=== PATIENT | female | born 1980 | race Caucasian/White ===

== ENCOUNTER → 2016-12-06 | Outpatient (CLI) | payer SELFPAY ==
--- NOTE | 2016-12-06 11:29 | KCIC ---
PROCEDURE Two-view chest HISTORY Tuberculosis screening COMPARISON None FINDINGS Two views of the chest are submitted. There is no lobar infiltrate, pleural fluid, pneumothorax. Heart size is considered within normal limits. Trachea is in the midline. IMPRESSION 1. There is no evidence of acute cardiopulmonary disease, no radiographic findings suggestive of active tuberculosis. Electronically signed by: Noah Allred MD (Dec 06, 2016 11:28:05)
== END | disposition home or self-care (01) ==
LOC: KCIC 10:27
PROVIDERS: ATTEND Family Medicine
DX: Z11.1 Encounter for screening for respiratory tuberculosis (principal)
CPT/HCPCS: 71020

== ENCOUNTER 2017-02-09 22:32 | Emergency (ER) | payer SELFPAY ==
[~2017-02-09] VITALS: Ht 152.4 cm; Wt 53.5 kg
[2017-02-10] MEDS ORDERED: HYDROmorphone 2 MG/ML VIAL IV ONE (00:15)
[2017-02-10 00:27] LABS: BASO # 0.1 x10^3/uL (0.0-0.2); BASO % 1 % (0-3); EOS % 3 % (0-3); HEMATOCRIT 29.3 % (36.0-47.0); HEMOGLOBIN 9.5 g/dL (12.0-15.5); LYMPH # 2.3 x10^3/uL (1.0-4.8); LYMPH % 26 % (24-48); MEAN CORPUSCULAR HEMOGLOBIN 26 pg (25-35); MEAN CORPUSCULAR HGB CONC 33 g/dL (31-37); MEAN CORPUSCULAR VOLUME 81 fL (79-100); MONO % 8 % (0-9); NEUT % 63 % (31-73); PLATELET COUNT 292 x10^3/uL (140-400); RED CELL DISTRIBUTION WIDTH 15.7 % (11.5-14.5); WHITE BLOOD COUNT 8.9 x10^3/uL (4.0-11.0)
[2017-02-10 00:30] LABS: BILIRUBIN,URINE NEGATIVE (NEG); GLUCOSE,URINE NEGATIVE (NEG); NITRITE,URINE NEGATIVE (NEG); PH,URINE 7.5; PROTEIN,URINE NEGATIVE (NEG-TRACE)
[2017-02-10 00:41] LABS: CALCIUM 8.3 mg/dL (8.5-10.1); CREATININE 0.7 mg/dL (0.6-1.0); GFR 95.2; POTASSIUM 3.6 mmol/L (3.5-5.1)
[2017-02-10 00:43] LABS: BACTERIA,URINE MODERATE /HPF (0-FEW); RBC,URINE 0 /HPF (0-2); SQUAMOUS EPITHELIAL CELL,UR MOD /LPF
[2017-02-10 00:47] LABS: ALBUMIN 3.3 g/dL (3.4-5.0); ALBUMIN/GLOBULIN RATIO 0.8 (1.0-1.7); TOTAL BILIRUBIN 0.3 mg/dL (0.2-1.0); TOTAL PROTEIN 7.7 g/dL (6.4-8.2)
--- NOTE | 2017-02-10 01:47 | RAD ---
PROCEDURE CT abdomen pelvis without contrast. HISTORY Right-sided flank pain since last week. No hematuria. TECHNIQUE Helical CT imaging of the abdomen pelvis is performed without IV or oral contrast. PQRS: One or more the following individualized dose reduction techniques were utilized for the study: 1. Automated exposure control. 2. Adjustment of the mA and/or kV according to patient size. 3. Use of iterative reconstruction technique. COMPARISON None. FINDINGS The lungs are clear. Cardiac size normal. The liver, gallbladder, spleen, pancreas, adrenal glands, abdominal aorta caliber are normal. No renal, ureteral, or bladder calculus. No perinephric stranding or hydronephrosis. Stomach unremarkable. Tiny fat containing umbilical hernia. No dilated small bowel. There is no colon wall thickening. Scattered stool in the colon. No secondary signs of appendicitis. No abdominal adenopathy or free fluid. Uterus prominent, not well evaluated with CT. Mild pelvic free fluid may be physiologic. The urinary bladder is normal. No acute bone abnormality. IMPRESSION 1. No renal or ureteral calculus. No obstructive uropathy. 2. Mild pelvic free fluid, probably physiologic. Electronically signed by: Atul Paul MD (February 10, 2017 01:45:51)
[2017-02-10 02:00] VITALS: BP 132/69
[2017-02-10] MEDS ORDERED: TRAM-29 PO (02:33)
[2017-02-10] MEDS ORDERED: CEPH-264 PO (02:33)
--- NOTE | 2017-02-10 02:33 | PHYS DOC ---
Past Medical History Past Medical History: No Pertinent History Past Surgical History: No Surgical History Alcohol Use: None Drug Use: None Adult General Chief Complaint Chief Complaint: FLANK PAIN HPI HPI Patient is a 36 year old female who presents here today complaining of flank pain 2 weeks. Patient reports the pain is colicky in nature. Patient denies any history of hypertension diabetes liver longer kidney problems. Patient has had no abdominal or chest surgeries. Patient does not smoke drink or do any drugs. Patient is allergic to any medications. Patient's last menstrual period was January 22, 2017. Patient has any fevers shakes chills nausea vomiting diarrhea cough vaginal discharge melena or blood per rectum. Patient reports her last by mouth intake was prior to coming. Patient denies having a bowel movement today. Patient's physical exam the ER was significant for tenderness to palpation to her flank region. Patient has no evidence of her doctor peritonitis. Patient's abdomen was soft nontender no rebound or guarding. Patient did not exhibit any signs or symptoms that'll be consistent with an acute surgical abdomen. Patient's ER workup is unremarkable except for positive UTI. Patient has CT scan of the abdomen and pelvis which did not reveal any pathology. There was no kidney stones diverticulitis abscess or masses that would explain the patient's symptoms. A/P #1 abdominal pain likely secondary to urinary tract infection. Patient was started on antibiotics and will be discharged home in stable condition. Patient was given adequate analgesia in the ER she feels much improved. Patient was given Dilaudid Toradol and Zofran IV fluids with significant resolution in her discomfort. Patient was given a dose of IV Rocephin the ER to initiate her therapy. Patient was sent home with by mouth Keflex. Review of Systems Review of Systems Constitutional: Denies fever or chills [] Eyes: Denies change in visual acuity, redness, or eye pain [] All other review systems are negative except as documented in history of present illness. Current Medications Current Medications Current Medications Medications (Trade) Dose Ordered Sig/Christy Start Time Stop Time Status Last Admin Dose Admin Ceftriaxone Sodium 50 ml @ 100 mls/hr 1X ONCE 02/10/17 02:30 02/10/17 02:49 DC Cephalexin HCl (Keflex) 250 mg STK-MED ONCE 02/10/17 02:50 02/10/17 02:56 DC Hydromorphone HCl (Dilaudid) 0.5 mg 1X ONCE 02/10/17 00:15 02/10/17 00:16 DC 02/10/17 00:38 0.5 MG Allergies Allergies Allergies Coded Allergies Type Severity Reaction Last Updated Verified No Known Drug Allergies 02/10/17 No Physical Exam Physical Exam Constitutional: Well developed, well nourished, no acute distress, non-toxic appearance. [] HENT: Normocephalic, atraumatic, bilateral external ears normal, oropharynx moist, no oral exudates, nose normal. [] Eyes: PERRLA, EOMI, conjunctiva normal, no discharge. [] Neck: Normal range of motion, no tenderness, supple, no stridor. [] Cardiovascular:Heart rate regular rhythm, Lungs & Thorax: Bilateral breath sounds clear to auscultation [] Abdomen: Bowel sounds normal, soft, no tenderness, no masses, no pulsatile masses. [] Skin: Warm, dry, no erythema, no rash. [] Extremities: No tenderness, no cyanosis, no clubbing, ROM intact, no edema. [] Neurologic: Alert and oriented X 3, normal motor function, normal sensory function, no focal deficits noted. [] Psychologic: Affect normal, judgement normal, mood normal. [] Current Patient Data Vital Signs Vital Signs Date Time Temp Pulse Resp B/P (MAP) Pulse Ox O2 Delivery O2 Flow Rate FiO2 02/10/17 02:30 54 12 98 Room Air 02/10/17 02:00 132/69 (90) 02/09/17 23:54 98.0 98.0 Lab Values Laboratory Tests Test 02/09/17 21:52 02/09/17 22:50 02/10/17 00:15 POC Urine HCG, Qualitative Hcg negative (Negative) Urine Collection Type Unknown Urine Color Yellow Urine Clarity Clear Urine pH 7.5 Urine Specific [place] 1.025 Urine Protein Negative mg/dL (NEG-TRACE) Urine Glucose (UA) Negative mg/dL (NEG) Urine Ketones (Stick) Negative mg/dL (NEG) Urine Blood Negative (NEG) Urine Nitrite Negative (NEG) Urine Bilirubin Negative (NEG) Urine Urobilinogen Dipstick 1.0 mg/dL (0.2 mg/dL) Urine Leukocyte Esterase Large (NEG) Urine RBC 0 /HPF (0-2) Urine WBC 5-10 /HPF (0-4) Urine Squamous Epithelial Cells Mod /LPF Urine Bacteria Moderate /HPF (0-FEW) Urine Mucus Mod /LPF White Blood Count 8.9 x10^3/uL (4.0-11.0) Red Blood Count 3.60 x10^6/uL (3.50-5.40) Hemoglobin 9.5 g/dL (12.0-15.5) L Hematocrit 29.3 % (36.0-47.0) L Mean Corpuscular Volume 81 fL (79-100) Mean Corpuscular Hemoglobin 26 pg (25-35) Mean Corpuscular Hemoglobin Concent 33 g/dL (31-37) Red Cell Distribution Width 15.7 % (11.5-14.5) H Platelet Count 292 x10^3/uL (140-400) Neutrophils (%) (Auto) 63 % (31-73) Lymphocytes (%) (Auto) 26 % (24-48) Monocytes (%) (Auto) 8 % (0-9) Eosinophils (%) (Auto) 3 % (0-3) Basophils (%) (Auto) 1 % (0-3) Neutrophils # (Auto) 5.6 x10^3uL (1.8-7.7) Lymphocytes # (Auto) 2.3 x10^3/uL (1.0-4.8) Monocytes # (Auto) 0.7 x10^3/uL (0.0-1.1) Eosinophils # (Auto) 0.2 x10^3/uL (0.0-0.7) Basophils # (Auto) 0.1 x10^3/uL (0.0-0.2) Sodium Level 139 mmol/L (136-145) Potassium Level 3.6 mmol/L (3.5-5.1) Chloride Level 104 mmol/L (98-107) Carbon Dioxide Level 29 mmol/L (21-32) Anion Gap 6 (6-14) Blood Urea Nitrogen 12 mg/dL (7-20) Creatinine 0.7 mg/dL (0.6-1.0) Estimated GFR (Cockcroft-Gault) 95.2 BUN/Creatinine Ratio 17 (6-20) Glucose Level 98 mg/dL (70-99) Calcium Level 8.3 mg/dL (8.5-10.1) L Total Bilirubin 0.3 mg/dL (0.2-1.0) Aspartate Amino Transferase (AST) 19 U/L (15-37) Alanine Aminotransferase (ALT) 17 U/L (14-59) Alkaline Phosphatase 78 U/L (46-116) Troponin I Quantitative < 0.017 ng/mL (0.000-0.055) Total Protein 7.7 g/dL (6.4-8.2) Albumin 3.3 g/dL (3.4-5.0) L Albumin/Globulin Ratio 0.8 (1.0-1.7) L Laboratory Tests 02/10/17 00:15 Laboratory Tests 02/10/17 00:15 Microbiology 02/10/17 Urine Culture - Preliminary, Resulted 02/10/17 Urine Culture Result 1 (JEN) - Preliminary, Resulted EKG EKG [] Radiology/Procedures Radiology/Procedures [] Course & Med Decision Making Course & Med Decision Making Pertinent Labs and Imaging studies reviewed. (See chart for details) [] Dragon Disclaimer Dragon Disclaimer This electronic medical record was generated, in whole or in part, using a voice recognition dictation system. Departure Departure Impression: Primary Impression: Urinary tract infection Additional Impression: Back pain Disposition: 01 HOME, SELF-CARE Condition: IMPROVED Referrals: LORY ROMERO MD (PCP) Patient Instructions: Urinary Tract Infection Scripts Tramadol Hcl (ULTRAM) 50 Mg Tablet 1 TAB PO Q6HRS, #14 TAB Prov: HEATH CASTILLO MD 02/10/17 Cephalexin (KEFLEX) 500 Mg Capsule 500 MG PO QID for 10 Days, CAP Prov: HEATH CASTILLO MD 02/10/17 Problem Qualifiers Primary Impression: Urinary tract infection Urinary tract infection type: acute cystitis Hematuria presence: without hematuria Qualified Codes: N30.00 - Acute cystitis without hematuria Additional Impression: Back pain Back pain location: low back pain Chronicity: acute Back pain laterality: right Sciatica presence: without sciatica Qualified Codes: M54.5 - Low back pain HEATH CASTILLO MD February 10, 2017 02:33
[2017-02-10] MEDS ORDERED: CEPHALEXIN 250 MG CAPSULE. PO STA (02:47)
[2017-02-10] MEDS ORDERED: CEPHALEXIN 250 MG CAPSULE. ONE (02:50)
== END 2017-02-10 02:50 | disposition home or self-care (01) ==
LOC: ER 22:32
DX: N30.00 Acute cystitis without hematuria (principal); M54.5 Low back pain
CPT/HCPCS: 36415; 74176; 80053; 81001; 84484; 84703; 85027; 87086; 96374; 99285; J1170; 81025

== ENCOUNTER 2017-03-22 14:44 | Emergency (ER) | payer OTHER ==
[~2017-03-22] VITALS: Ht 152.4 cm; Wt 53.5 kg
[~2017-03-22 14:44] MED LIST: CEPH-264 PO; TRAM-48 PO
[2017-03-22 14:50] VITALS: BP 128/57
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
[2017-03-22] MEDS ORDERED: IBUPROFEN 800 MG TABLET. PO ONE (15:15)
[2017-03-22] MEDS ORDERED: ACET-704 PO (15:21)
[2017-03-22] MEDS ORDERED: silver sulfADIAZINE 1% CREAM 25GM TUBE. TP ONE (15:30)
== END 2017-03-22 15:29 | disposition home or self-care (01) ==
LOC: ER 14:44
DX: T20.22XA Burn of second degree of lip(s), initial encounter (principal); T31.0 Burns involving less than 10% of body surface; X10.1XXA Contact with hot food, initial encounter; Y93.89 Activity, other specified; Y92.89 Other specified places as the place of occurrence of the external cause; Y99.8 Other external cause status
CPT/HCPCS: 16020; 99284-25

== ENCOUNTER → 2019-06-01 | Outpatient (CLI) | payer SELFPAY ==
[~2019-06-01] MED LIST changes: +ACET-704 PO
--- NOTE | 2019-06-01 14:55 | KCIC ---
EXAM: Chest, 2 views. HISTORY: Positive tuberculin skin test. COMPARISON: 12/06/2016. FINDINGS: 2 views the chest are obtained. There is no infiltrate, pleural effusion or pneumothorax. The heart is normal in size. IMPRESSION: No acute pulmonary finding. Electronically signed by: Angelic Kang MD (06/01/2019 2:52 PM) [facility]
== END | disposition home or self-care (01) ==
LOC: KCIC 14:15
PROVIDERS: ATTEND Nurse Practitioner Family
DX: Z11.1 Encounter for screening for respiratory tuberculosis (principal)
CPT/HCPCS: 71046

== ENCOUNTER → 2020-05-31 | Outpatient (CLI) | payer BC ==
--- NOTE | 2020-05-31 12:23 | KCIC ---
INDICATION: Reason: REACTION TO TB TEST W/O ACTIVE TB / Spl. Instructions: / History: COMPARISON: June 01, 2019 FINDINGS: 2 view of chest obtained. Cardiac silhouette is borderline in size but similar to prior. No definite focal airspace consolidation or pulmonary edema. Mild degenerative changes spine. IMPRESSION: * No focal airspace consolidation or edema. Electronically signed by: Alexander Abdullahi MD (05/31/2020 12:20 PM) [id number]
== END | disposition home or self-care (01) ==
LOC: KCIC 11:23
PROVIDERS: ATTEND Nurse Practitioner
DX: R76.11 Nonspecific reaction to tuberculin skin test without active tuberculosis (principal); M47.814 Spondylosis without myelopathy or radiculopathy, thoracic region
CPT/HCPCS: 71046